=== PATIENT | male | born 1930 | race Caucasian/White ===

== ENCOUNTER 2017-07-17 08:58 | Inpatient (IN) | payer OTHER ==
[~2017-07-17] VITALS: Ht 185.4 cm; Wt 90.7 kg
--- NOTE | ~2017-07-17 | S ---
[facility] [place] [address] SURGICAL PATH RPT PROCEDURE Name: JULIANE HILTON Cj Room #: 435-P ADM IN M.R.#: [id number] Admission: 07/17/17 Date of : [birth year] Discharge: Report #: [id number] Path Case #: [id number] PATHOLOGY REPORT COLLECTION DATE: 07/20/2017 RECEIVED DATE: 07/20/2017 SUBMITTING PHYS: Dr. Kingsley Rojas OTHER PHYS: SPECIMEN(S) RECEIVED: A.Gastritis bx * * * * * * * * * * * * FINAL DIAGNOSIS: Stomach, biopsy: - Mild chronic inactive gastritis with reactive changes. - An H. Pylori immunostain is negative (Block A1; appropriately reactive control). PATHOLOGIST: Luis Richardson M.D. REPORT ELECTRONICALLY SIGNED BY: Luis Richardson M.D. DATE/TIME: 07/21/2017 11:26 * * * * * * * * * * * * GROSS PATHOLOGY: The specimen is received in formalin, labeled "Juliane Hilton and biopsy of gastritis", are three irregular fragment of eng soft tissue ranging from 0.1 up to 0.3 cm and measuring 0.4 x 0.3 x 0.2 cm in aggregate. Entirely submitted in A1. (SWS; 07/20/2017) CLINICAL HISTORY: SOA, Anemia, GI bleed Gastritis INITIAL CPT CODE(S): A; 16883, 43488 Professional services performed by [facility] at [facility] [address], [place] [address] Technical services performed by [facility] at [address] [place] [address], [place] [address], [place] [address]. [facility] [address] [place] [address] SURGICAL PATH RPT PROCEDURE Name: JULIANE HILTON Room #: 435-P ADM IN M.R.#: [id number] Admission: 07/17/17 Date of : [birth year] Discharge: Report #: [id number] Path Case #: [id number] [place] [id number] [address] PHONE: [phone] DIRECTOR: Jaiden Richards M.D. * * * END OF REPORT * * *
--- NOTE | ~2017-07-17 | EKG ---
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
--- NOTE | ~2017-07-17 | 2DMMODE ---
[facility] [address] [place] [address] 2 D/M-MODE ECHOCARDIOGRAM Name: JULIANE HILTON Room #: 435-P [facility] IN [facility]#: [id number] Admission: 07/17/17 Attend Phys: Emmanuel Young, Discharge: Date of : [birth year] Date of Service: 07/17/17 1546 Report #: [id number] THIS REPORT FOR: //name// APPROVED REPORT Study performed: 07/17/2017 14:21:16 EXAM: Comprehensive 2D, Doppler, and color-flow Echocardiogram Patient Location: Bedside Room #: [facility] Status: routine BSA: 2.15 HR: 76 bpm BP: 138/54 mmHg Rhythm: PAF Other Information Study Quality: Adequate/Low parasternal window. Technically limited study due to body habitus. Indications Paroxysmal A-fib. 2D Dimensions RVDd: 40.42 mm LVEF(%): 47.71 (>50%) IVSd: 11.29 (7-11mm) LVDd: 47.91 mm PWd: 10.92 (7-11mm) LVDs: 36.42 (25-40mm) Aortic Root: 36.36 mm Lopez's LVEF: 47.71 % Volumes Left Atrial Volume (Systole) Single Plane 4CH: 76.00 mL Single Plane 2CH: 86.63 mL LA ESV Index: 40.00 mL/m2 Aortic Valve AoV Peak Robin.: 1.47 m/s AO Peak Gr.: 8.70 mmHg LVOT Max P.94 mmHg LVOT Max V: 0.99 m/s Mitral Valve E/A Ratio: 0.7 [facility] [address] [place] [address] 2 D/M-MODE ECHOCARDIOGRAM Name: JULIANE HILTON Room #: 435-P [facility] IN [facility]#: [id number] Admission: 07/17/17 Attend Phys: Emmanuel Young, Discharge: Date of : [birth year] Date of Service: 07/17/17 1546 Report #: [id number] MV Decel. Time: 242.85 ms MV E Max Robin.: 0.51 m/s MV A Robin.: 0.69 m/s MV PHT: 70.43 ms IVRT: 87.66 ms Pulmonary Valve PV Peak Robin.: 1.20 m/s PV Peak Gr.: 5.73 mmHg Tricuspid Valve TR Peak Robin.: 2.35 m/s RAP Estimate: 5.00 mmHg TR Peak Gr.: 22.13 mmHg PA Pressure: 27.00 mmHg Left Ventricle The left ventricle is normal size. There is normal left ventricular wall thickness. Left ventricular systolic function is low-normal. LVEF is 50%. Mild diastolic dysfunction is present (impaired relaxation pattern). Right Ventricle The right ventricle is normal size. The right ventricular systolic function is normal. Atria Left atrium is mildly dilated. The right atrium size is normal. Aortic Valve The aortic valve is normal in structure. Mild aortic regurgitation. There is no aortic valvular stenosis. Mitral Valve The mitral valve is normal in structure. Mild mitral annular calcification. Mild mitral regurgitation. Tricuspid Valve The tricuspid valve is normal in structure. Trace to mild tricuspid regurgitation. Estimated PAP is 27mmHg. Pulmonic Valve Pulmonic valve is not well visualized. Great Vessels The aortic root is normal in size. Aortic arch is not well visualized. IVC is normal in size and collapses >50% with [facility] [address] [place] [address] 2 D/M-MODE ECHOCARDIOGRAM Name: LIDAJULIANE Cj Room #: 435-P [facility] IN [facility].#: [id number] Admission: 07/17/17 Attend Phys: Emmanuel Young, Discharge: Date of : [birth year] Date of Service: 07/17/17 1546 Report #: [id number] inspiration. Pericardium There is no pericardial effusion. <Conclusion> The left ventricle is normal size. Left ventricular systolic function is low-normal. LVEF is 50%. Mild diastolic dysfunction is present (impaired relaxation pattern). The right ventricle is normal size. Left atrium is mildly dilated. Mild aortic regurgitation. The mitral valve is normal in structure. Mild mitral annular calcification. The mitral valve is normal in structure. Mild mitral annular calcification. Mild mitral regurgitation. Trace to mild tricuspid regurgitation. Estimated PAP is 27mmHg. There is no pericardial effusion. <ELECTRONICALLY SIGNED> By: Ramakrishna Redmond MD, FACC 07/17/17 1546 1546 1546 Ramakrishna Redmond MD, FACC /INF
--- NOTE | ~2017-07-17 | P ---
[facility] [place] [address] PROCEDURE REPORT Name: LIDAJULIANE Cj Room #: 435-P [facility] IN ..#: [id number] Admission: 07/17/17 Attend Phys: Emmanuel Young DO Discharge: Date of : [birth year] Report #: [id number] THIS REPORT FOR: //name// CC: Dr. Ruy Bolaños MD OUTPATIENT UPPER ENDOSCOPY REPORT BRIEF HISTORY: The patient is an 87-year-old male who presented with shortness of breath, was found to have a several gram drop in hemoglobin in recent months. He does have a history of colon cancer with segmental resection in 2008. Last colonoscopy was negative per his report about 3-4 years ago in [place]. Iron studies here in the hospital are normal. One stool Hemoccult is negative. He has not noted any bloody stools or black stools. PREOPERATIVE DIAGNOSIS: Acute anemia. POSTOPERATIVE DIAGNOSES: 1. Diffuse gastritis. 2. Small hiatus hernia. MEDICATIONS: Deep sedation with propofol per anesthesia. SPECIMEN: Biopsies of gastritis. ESTIMATED BLOOD LOSS: 3 mL. PROCEDURE: EGD with biopsy. FINDINGS: Prior to propofol sedation, procedure of upper endoscopy was discussed with the patient as well as potential risks and its complications. He indicates he understands and desires to proceed. DESCRIPTION OF PROCEDURE: With the patient in the left lateral decubitus position, the [employer] video endoscope was inserted in the cervical esophagus under direct vision without difficulty. Examination of this organ through its entire length revealed normal esophageal mucosa down to the squamocolumnar junction. Squamocolumnar junction was inspected. A small hiatus hernia was noted. No ulcers or bleeding lesions were seen. A source for gastrointestinal blood loss was not seen. The scope was advanced fully into the stomach, which was examined on end view as well as retroflexed views. Again, no bleeding lesions were seen. No ulcers were seen. Upon retroflexion, the hiatus hernia was seen. No other abnormalities were identified. However, in the antrum, there was a diffuse erythematous gastritis, no ulcers or erosions were seen. Biopsies obtained for H. pylori. Pylorus, duodenal bulb and postbulbar sweep were inspected down to [facility] [address] [place] [address] PROCEDURE REPORT Name: LIDAJULIANE P Room #: 435-P [facility] IN ..#: [id number] Admission: 07/17/17 Attend Phys: Emmanuel Young DO Discharge: Date of : [birth year] Report #: [id number] about the third and fourth portion of duodenum. The patient was found to have a yellowish lipoma in the third portion of duodenum. It is smooth and benign appearance. Typical appearance and biopsies were not obtained. Obvious bleeding lesions were not seen. At that point, the scope was slowly withdrawn and careful circumferential views confirmed the above findings. The patient tolerated the procedure well. DISPOSITION: The patient with findings as noted above. I do not see an obvious bleeding lesion or lesion to explain acute blood loss. It is noted his iron studies are normal and one stool Hemoccult is negative. Etiology of his anemia is not entirely clear. If there ____ concern or if there is further evidence to support gastrointestinal blood loss, a colonoscopy at a later date may be a consideration. We will discuss further with the patient. <ELECTRONICALLY SIGNED> By: Kingsley Rojas MD 07/20/17 1949 1409 1849 Kingsley Rojas MD /nt
--- NOTE | ~2017-07-17 | EKG ---
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 07/20/17 0800 3 3 Ant English MD, [facility] /EPI
[2017-07-17 09:16] VITALS: BP 133/73
[2017-07-17] MEDS ORDERED: VALSARTAN-HCTZ1 EAC3 PO (09:21)
[2017-07-17] MEDS ORDERED: ASPIR 8181 MG PO (09:22)
[2017-07-17] MEDS ORDERED: GLUCOPHAGE1000 MG PO (09:22)
[2017-07-17] MEDS ORDERED: ELIQUIS5 MG PO (09:22)
[2017-07-17] MEDS ORDERED: GLUCOTROL5 MG PO (09:22)
[2017-07-17] MEDS ORDERED: LIPITOR10 MG PO (09:22)
[2017-07-17] MEDS ORDERED: B-12 COMPL1000 MCG/1 INJECTION (09:23)
[2017-07-17 09:29] LABS: HEMATOCRIT 28.8 % (42.0-52.0); HEMOGLOBIN 9.5 gm/dL (14.0-18.0); MCH 29.5 pg (26.0-34.0); MCHC 33.1 g/dL (28.0-37.0); MCV 89.1 fL (80.0-100.0); PLATELET COUNT 398 thou/uL (150-400); RBC 3.23 mil/uL (4.50-6.00); RDW 13.8 % (10.5-14.5); WBC 9.5 thou/uL (4.0-11.0)
[2017-07-17 09:33] LABS: MANUAL DIFF YES
[2017-07-17 09:35] LABS: ANION GAP 12 mmol/L (7-16); BUN 44 mg/dL (7-18); CALCIUM 9.4 mg/dL (8.5-10.1); CHLORIDE 99 mmol/L (98-107); CO2 26 mmol/L (21-32); CREATININE 1.5 mg/dL (0.7-1.3); GLUCOSE 167 mg/dL (74-106); SODIUM 137 mmol/L (136-145)
[2017-07-17 09:43] LABS: TROPONIN-I < 0.04 ng/mL (<0.04-0.07)
[2017-07-17 10:10] LABS: ABSOLUTE NEUTROPHILS 8.2 thou/uL (1.4-8.2); PLATELET ESTIMATE NORMAL; TOTAL CELL COUNT 100
[2017-07-17 12:56] VITALS: BP 148/70
[2017-07-17 13:09] LABS: OBSERVED RETIC COUNT 1.98 % (0.6-2.6)
[2017-07-17 13:22] VITALS: BP 148/70
[2017-07-17 13:24] LABS: % SATURATION 30 % (20-39); IRON 100 ug/dL (65-175); TIBC 330 ug/dL (250-450); UIBC 230 ug/dL
[2017-07-17 14:05] VITALS: BP 128/54; BP 134/68
[2017-07-17 19:24] VITALS: BP 118/44
[2017-07-18 03:51] LABS: ABSOLUTE NEUTROPHILS 6.2 thou/uL (1.4-8.2); BASOPHILS 0.4 % (0.0-2.0); EOSINOPHILS 2.4 % (0.0-3.0); HEMATOCRIT 24.1 % (42.0-52.0); HEMOGLOBIN 8.2 gm/dL (14.0-18.0); MCH 30.1 pg (26.0-34.0); MCHC 33.9 g/dL (28.0-37.0); MCV 88.7 fL (80.0-100.0); MONOCYTES 8.1 % (1.0-8.0); PLATELET COUNT 340 thou/uL (150-400); POLYS 78.1 % (36.0-66.0); RBC 2.72 mil/uL (4.50-6.00); RDW 13.8 % (10.5-14.5)
[2017-07-18 03:55] LABS: MANUAL DIFF NO
[2017-07-18 04:06] LABS: ANION GAP 10 mmol/L (7-16); BUN 29 mg/dL (7-18); CALCIUM 8.5 mg/dL (8.5-10.1); CHLORIDE 99 mmol/L (98-107); CO2 28 mmol/L (21-32); CREATININE 1.1 mg/dL (0.7-1.3); GLUCOSE 128 mg/dL (74-106); POTASSIUM 3.8 mmol/L (3.5-5.1); SODIUM 137 mmol/L (136-145)
[2017-07-18 04:12] LABS: CHOLESTEROL 70 mg/dL (<200); HDL CHOLESTEROL 31 mg/dL (>40); LDL CHOLESTEROL 28 mg/dL (<100); TC:HDL 2.3 Ratio (Not establshd); TRIGLYCERIDE 55 mg/dL (<150); VLDL 11 mg/dL (<40)
[2017-07-18 04:21] LABS: SERUM ASSESSMENT Clear
[2017-07-18 04:52] VITALS: BP 116/49
[2017-07-18 08:00] VITALS: BP 107/48
[2017-07-18 16:00] VITALS: BP 121/47
[2017-07-18 19:16] VITALS: BP 115/42
[2017-07-19 03:40] VITALS: BP 113/51
[2017-07-19 04:56] LABS: ABSOLUTE NEUTROPHILS 5.7 thou/uL (1.4-8.2); BASOPHILS 0.3 % (0.0-2.0); HEMATOCRIT 26.4 % (42.0-52.0); HEMOGLOBIN 8.8 gm/dL (14.0-18.0); LYMPHOCYTES 11.7 % (24.0-44.0); MCH 29.5 pg (26.0-34.0); MCHC 33.3 g/dL (28.0-37.0); MCV 88.6 fL (80.0-100.0); MONOCYTES 9.5 % (1.0-8.0); PLATELET COUNT 334 thou/uL (150-400); POLYS 76.5 % (36.0-66.0); RBC 2.98 mil/uL (4.50-6.00); RDW 13.5 % (10.5-14.5); WBC 7.5 thou/uL (4.0-11.0)
[2017-07-19 05:00] LABS: MANUAL DIFF NO
[2017-07-19 05:08] LABS: CALCIUM 8.5 mg/dL (8.5-10.1); POTASSIUM 3.7 mmol/L (3.5-5.1)
[2017-07-19 08:00] VITALS: BP 108/42
[2017-07-19 16:00] VITALS: BP 113/51
[2017-07-19 19:53] VITALS: BP 111/52
[2017-07-20 03:06] VITALS: BP 96/59
[2017-07-20 05:26] LABS: ABSOLUTE NEUTROPHILS 5.7 thou/uL (1.4-8.2); BASOPHILS 0.4 % (0.0-2.0); HEMATOCRIT 26.4 % (42.0-52.0); HEMOGLOBIN 8.9 gm/dL (14.0-18.0); LYMPHOCYTES 10.9 % (24.0-44.0); MCH 29.4 pg (26.0-34.0); MCHC 33.5 g/dL (28.0-37.0); MCV 87.8 fL (80.0-100.0); PLATELET COUNT 313 thou/uL (150-400); POLYS 76.7 % (36.0-66.0); RBC 3.01 mil/uL (4.50-6.00); RDW 13.7 % (10.5-14.5); WBC 7.5 thou/uL (4.0-11.0)
[2017-07-20 05:28] LABS: MANUAL DIFF NO
[2017-07-20 05:38] LABS: CALCIUM 8.3 mg/dL (8.5-10.1); POTASSIUM 3.8 mmol/L (3.5-5.1)
[2017-07-20 08:00] VITALS: BP 127/57
[2017-07-20 16:00] VITALS: BP 138/62
[2017-07-20 19:35] VITALS: BP 113/42
[2017-07-21 05:50] VITALS: BP 113/49
[2017-07-21 06:38] LABS: HEMATOCRIT 23.2 % (42.0-52.0); HEMOGLOBIN 8.1 gm/dL (14.0-18.0); MCH 30.5 pg (26.0-34.0); MCHC 34.9 g/dL (28.0-37.0); MCV 87.4 fL (80.0-100.0); RBC 2.66 mil/uL (4.50-6.00); RDW 13.6 % (10.5-14.5); WBC 7.2 thou/uL (4.0-11.0)
[2017-07-21 07:36] VITALS: BP 110/43
== END 2017-07-21 13:52 | DRG 811 ==
LOC: ER 08:58 → 4S 12:53 → EROBS 12:53 → 4S 14:06
PROVIDERS: Family Medicine; Nurse Practitioner; Specialist
PROC: 0DB68ZX Excision of Stomach, Via Natural or Artificial Opening Endoscopic, Diagnostic (ICD-10-PCS; principal; 2017-07-20)
DX: D64.9 Anemia, unspecified (principal); N17.0 Acute kidney failure with tubular necrosis; I48.0 Paroxysmal atrial fibrillation; F03.90 Unspecified dementia, unspecified severity, without behavioral disturbance, psychotic disturbance, mood disturbance, and anxiety; E11.9 Type 2 diabetes mellitus without complications; K29.70 Gastritis, unspecified, without bleeding; K44.9 Diaphragmatic hernia without obstruction or gangrene; E78.5 Hyperlipidemia, unspecified; I10 Essential (primary) hypertension; E03.9 Hypothyroidism, unspecified; E78.00 Pure hypercholesterolemia, unspecified; Z85.46 Personal history of malignant neoplasm of prostate; Z85.038 Personal history of other malignant neoplasm of large intestine
CPT/HCPCS: 10100; 62110; 62900; 70005

== ENCOUNTER 2017-08-07 14:45 | Emergency (ER) | payer OTHER ==
[~2017-08-07] VITALS: Ht 185.4 cm; Wt 90.7 kg
[~2017-08-07 14:45] MED LIST: ASPIR 8181 MG PO; B-12 COMPL1000 MCG/1 INJECTION; ELIQUIS5 MG PO; GLUCOPHAGE1000 MG PO; GLUCOTROL5 MG PO; LIPITOR10 MG PO; VALSARTAN-HCTZ1 EAC3 PO
[2017-08-07 15:21] LABS: ABSOLUTE NEUTROPHILS 7.9 thou/uL (1.4-8.2); BASOPHILS 0.5 % (0.0-2.0); HEMATOCRIT 25.8 % (42.0-52.0); HEMOGLOBIN 8.5 gm/dL (14.0-18.0); LYMPHOCYTES 14.4 % (24.0-44.0); MCH 28.2 pg (26.0-34.0); MCHC 32.8 g/dL (28.0-37.0); MCV 86.2 fL (80.0-100.0); MONOCYTES 8.4 % (1.0-8.0); PLATELET COUNT 350 thou/uL (150-400); POLYS 75.7 % (36.0-66.0); WBC 10.5 thou/uL (4.0-11.0)
[2017-08-07 15:23] LABS: MANUAL DIFF NO
[2017-08-07 15:53] LABS: CREATININE 1.3 mg/dL (0.7-1.3); POTASSIUM 4.5 mmol/L (3.5-5.1)
[2017-08-07 15:58] LABS: ALBUMIN 2.1 g/dL (3.4-5.0); DIRECT BILIRUBIN 0.1 mg/dL (<0.1-0.3); TOTAL BILIRUBIN 0.4 mg/dL (<0.1-1.0); TOTAL PROTEIN 7.4 g/dL (6.4-8.2)
== END 2017-08-07 16:55 | disposition home or self-care (01) ==
LOC: ER 14:45
PROVIDERS: Nurse Practitioner
DX: R79.89 Other specified abnormal findings of blood chemistry (principal); I10 Essential (primary) hypertension; E78.00 Pure hypercholesterolemia, unspecified

== ENCOUNTER 2017-10-08 11:17 | Inpatient (IN) | payer OTHER ==
[~2017-10-08] VITALS: Ht 188 cm; Wt 92.8 kg
[2017-10-08] VITALS (7 sets, daily range): BP systolic 100–149; BP diastolic 47–79
--- NOTE | ~2017-10-08 | HC ---
[facility] [place] [address] CONSULTATION Name: JULIANE HILTON Cj Room #: 213-P [facility] IN ..#: [id number] Admission: 10/08/17 Attend Phys: Emmanuel Young DO Discharge: Date of : [birth year] Report #: [id number] THIS REPORT FOR: //name// CC: Emmanuel Bolaños MD DATE OF SERVICE: 10/08/2017 TYPE OF REPORT: Gastroenterology consultation. PATIENT OF: Caden Bolaños M.D. and Emmanuel Young D.O. CHIEF COMPLAINT AND HISTORY OF PRESENT ILLNESS: This is a very pleasant 87-year-old white male whom I asked to evaluate for possible etiologies of microcytic anemia. The patient states that recently he lost 35 pounds unintentionally at the care home. He states he just lost his appetite and he could not eat anything. He had injured his back recently and that may have been a contributing factor. He presented to the hospital with dizziness and mild shortness of air that started this morning. PAST MEDICAL HISTORY: Significant for hypertension, hyperlipidemia, diabetes mellitus, atrial fibrillation, prostate cancer and colon cancer. PAST SURGICAL HISTORY: Significant for prostatectomy in 1996. He had a right colon resection in 2008 for the colon cancer and he has had bilateral cataract surgeries. ALLERGIES: No known drug allergies. MEDICATIONS: Prior to admission included aspirin, Lipitor, vitamin B12, Glucotrol, hydrochlorothiazide, metformin and metoprolol. SOCIAL HISTORY: Does not smoke and does not drink alcohol. He has had blood transfusions in the past. FAMILY HISTORY: Not taken. REVIEW OF SYSTEMS: He denies any dysphagia, odynophagia, gastroesophageal reflux, hiatal hernia, peptic ulcer disease, nausea or vomiting. His weight has gone down 35 pounds unintentionally as described above. His appetite was poor but is now back to normal. He denies any hematemesis, hematochezia or melena. He denies any nausea or vomiting, diarrhea, constipation or abdominal pain. He denies jaundice, hepatitis, cholelithiasis, cholecystitis or pancreatitis. [facility] [address] [place] [address] CONSULTATION Name: JULIANE HILTON Cj Room #: 213-P [facility] IN [facility].#: [id number] Admission: 10/08/17 Attend Phys: Emmanuel Young DO Discharge: Date of : [birth year] Report #: [id number] PHYSICAL EXAMINATION: GENERAL: Reveals a well-developed, well-nourished 87-year-old white male, in no apparent distress. At the time of the examination, he is awake, alert and oriented x 4 and cooperative and pleasant to converse with. VITAL SIGNS: Blood pressure 134/61, temperature 98, pulse 66 and respirations are 16 and oxygen saturation on room air is 100%. HEENT: Normocephalic, atraumatic and anicteric. HEART: Irregularly irregular with a controlled ventricular rate. LUNGS: Clear bilaterally in all serrano. ABDOMEN: Soft. Bowel sounds are present in all 4 quadrants. There is no palpable organomegaly or mass. There is no tenderness, rebound or guarding. NEUROLOGICAL: He appears grossly intact without any lateralizing signs. SIGNIFICANT LABORATORY DATA: Glucose is 216 today. Troponins normal. BNP is 1076. White blood cell count 5.6; hemoglobin 8.5; hematocrit 26.4; MCV 79; MCH 25; MCHC 32; RDW 17.7 and platelet count is 313,000. TSH is normal. IMPRESSION: 1. Microcytic anemia, hemoglobin 8. The patient has an esophagogastroduodenoscopy in June 2017 that was unrevealing as to the etiology of his anemia and colonoscopy was recommended at that time. 2. Weight loss 35 pounds unintentionally at the care home. The patient states his appetite has returned to normal now and he is eating regularly. 3. History of colon cancer in 2008, status post right hemicolectomy. 4. History of prostate cancer in 1996. He had a prostatectomy at that time. 5. Hypertension. 6. Hyperlipidemia. 7. Atrial fibrillation. 8. Diabetes mellitus. RECOMMENDATIONS: My recommendations are as follows: We will prep him tonight for possible colonoscopy in the morning. He will be n.p.o. after midnight. If the colonoscopy is negative for source of bleeding, he may benefit from an M2 video capsule study of the small intestine. He said that he has had these performed before but has never gotten results from them. These were both done in [place]. Thank you very much once again for allowing me to participate in his care, Dr. Bolaños and Dr. Young. <ELECTRONICALLY SIGNED> By: Margaret Austin DO 10/08/172138 1547 28 Margaret Austin DO /nt
--- NOTE | ~2017-10-08 | EKG ---
[place] [address] [address] 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 : 1930 Requested By: Nicki Bermudez Order Number: [id number] MD: Ant English Measurements Intervals [place] Rate: 79 P: SD: QRS: -54 QRSD: 130 T: 31 QT: 412 QTc: 473 Interpretive Statements Sinus rhythm with atrial premature complexes Left bundle branch block Compared to ECG 07/18/2017 09:58:44 No significant change was found Electronically Signed On 10-08-2017 12:49:46 [employer] by Ant English [email or web address] <ELECTRONICALLY SIGNED> By: Ant English MD, [facility] 10/08/17 1249 1138 113 Ant English MD, [facility] /EPI
--- NOTE | ~2017-10-08 | P ---
[facility] [place] [address] PROCEDURE REPORT Name: LIDAJULIANE Cj Room #: 213-P [facility]..#: [id number] Admission: 10/08/17 Attend Phys: Emmanuel Young DO Discharge: 10/13/17 Date of : [birth year] Report #: [id number] THIS REPORT FOR: //name// CC: Emmanuel Bolaños MD INPATIENT COLONOSCOPY BRIEF HISTORY: The patient is an 87-year-old male with microcytic anemia. He does have a history of colon cancer and also history of prostate cancer and he describes brachytherapy for his prostate cancer. PREOPERATIVE DIAGNOSES: History of colon cancer and microcytic anemia. POSTOPERATIVE DIAGNOSES: 1. Diminutive polyp, 30 cm. 2. Small internal hemorrhoids. 3. History of colon cancer, status post right hemicolectomy. 4. Diffusely dilated colon consistent with chronic constipation. MEDICATIONS: Deep sedation with propofol per anesthesia. SPECIMEN: Polyp from 30 cm. ESTIMATED BLOOD LOSS: 3 mL. PROCEDURE: Colonoscopy to ileocolonic anastomosis with biopsy findings. FINDINGS: Prior to propofol sedation, procedure of colonoscopy discussed with the patient as well as potential risks and its complications. He indicates he understands and desires to proceed. DESCRIPTION OF PROCEDURE: With the patient in left lateral decubitus position, digital examination was completed which revealed no abnormalities. Subsequently, the [employer] video colonoscope was introduced into the rectum, advanced under direct vision to the proximal colon. The ileocolonic anastomosis was identified. It was unremarkable without evidence of ulceration. I was able to visualize the distal segment of the terminal ileum, which is noted to be unremarkable. At that point, the scope was slowly withdrawn and careful circumferential views obtained. There were limitations of the prep. However, with extensive irrigation and suctioning of about 1300 mL of liquid stool, we were able to upgrade to a good prep. The mucosa was within normal limits, normal vascular pattern and normal light reflex. As we withdrew the scope, the mucosa was inspected. It was normal. He did have a dilated colon consistent with suggestive of chronic constipation. No obstructing lesions were seen. No neoplastic lesions were seen until the sigmoid colon was reached in about 30 cm. [facility] [address] [place] [address] PROCEDURE REPORT Name: LIDAJULIANE P Room #: 213-P [facility] IN ..#: [id number] Admission: 10/08/17 Attend Phys: Emmanuel Young DO Discharge: 10/13/17 Date of : [birth year] Report #: [id number] A diminutive polyp was seen and removed by biopsy. Scope was further withdrawn and no additional polypoid lesions were seen. The scope was withdrawn in the rectum and no mucosal abnormalities were seen. Upon retroflexion, small hemorrhoids were seen. In addition, the patient reports brachytherapy, but vascular ectasias or bleeding lesions. Her radiation proctitis was not identified on this exam. Scope was withdrawn. The patient tolerated the procedure well. DISPOSITION: The patient with microcytic anemia, history of colon cancer. He did have one diminutive polyp. The polyp is quite small and I doubt it is significant for blood loss. No bleeding lesions were seen. It is noted that in the past several months, he has had several Hemoccult negative stools. Anemia may be on the basis of chronic illness. However, if there is evidence of gastrointestinal blood loss, a capsule study would be consideration. We will follow up on the path, but at this point in time, I doubt the patient would benefit from routine high risk screening colonoscopy due to his history of colon cancer. Last colonoscopy was 2-3 years ago. Withdrawal time from the surgical anastomosis was 18 minutes 44 seconds. <ELECTRONICALLY SIGNED> By: Kingsley Rojas MD 10/13/171926 1248 06 Kingsley Rojas MD /nt
--- NOTE | ~2017-10-08 | HC ---
[facility] [place] [address] CONSULTATION Name: JULIANE HILTON Room #: 213-P ADM IN .R.#: [id number] Admission: 10/08/17 Attend Phys: Emmanuel Young DO Discharge: Date of : [birth year] Report #: [id number] THIS REPORT FOR: //name// CC: Margaret Leal MD PHYSICIAN REQUESTING CONSULT: Emmanuel Young DO REASON FOR CONSULTATION: Anemia. HISTORY OF PRESENT ILLNESS: The patient is a very pleasant 87-year-old gentleman who currently lives in [facility] who I believe is originally may be recently from [place] up until about a year and a half ago. The patient was admitted for worsening anemia. It sounds like the anemia was sort of noted this past June or so. The Eliquis was held. He also had a back fracture about that time and had weight loss. Hemoglobin about that time in [place] records had been about 9.8, MCV of about 89, it has drifted down to 78, and hemoglobin 8 lately. Iron studies back then were borderline, but the patient's MCV has decreased quite a bit since that time. His differential white cells and platelets appear to be normal. The patient states he denies any headache, any mouth troubles, does have some vision troubles, but it is old, no swallowing troubles, no new dyspepsia, no new abdominal pain, no new constipation, no new diarrhea, no melanoma, no hematochezia. He states he eats a regular meat and potatoes diet. He had had some anorexia, shortly after the back fall, but this has been improving and he has started to gain weight again. He has not noticed any change in bowel habits. He had been on iron for several days, recently they stopped it, I assume in preparation for evaluation. His several years ago and he does have a brother and niece in town. PAST MEDICAL HISTORY: Notable for hypertension, hyperlipidemia, diabetes, atrial fibrillation may be from a year and a half ago, had been on anticoagulation until this fall with Eliquis; history of prostate cancer in 1996, treated, I believe in [place]; history of colon cancer, supposedly had surgery at the [facility] in [place], [place]; did not take chemotherapy, he does not think his lymph nodes were involved, but does not recall. ALLERGIES: Not known. 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 In the past, had also worked at [employer]. Nonsmoker and nondrinker at this time. His several years ago from complications of symptoms of a polyp or head and neck cancer, I am not sure exactly what type. She survived for several years. No children. FAMILY HISTORY: Mother had some type of cancer, went to her brain, not sure it [facility] [address] [address] CONSULTATION Name: JULIANE HILTON Cj Room #: 213-P [facility] IN M.R.#: [id number] Admission: 10/08/17 Attend Phys: Emmanuel Young DO Discharge: Date of : [birth year] Report #: [id number] was primary or not. He had 5 brothers and 1 sister, sounds like some of his brothers might have had colon cancer. MEDICATIONS: At this time, in the hospital include glipizide 5 mg daily, also insulin on a sliding scale, atorvastatin 10 mg daily, metformin 1000 b.i.d., and also MiraLax p.r.n. LABORATORY DATA: Studies here include a TSH of 2.43, hemoglobin of 8 with an MCV of 78.6, RDW 18 with normal differential. Chemistries had been normal earlier in August with ASTs, total bili, alk phos, and ASTs normal. PHYSICAL EXAMINATION: GENERAL: The patient appears his stated age, a little hard of hearing. VITAL SIGNS: Height is 6 feet 1 inch or 187.9 cm. Weight is 204 pounds or 92.8 kilograms. Blood pressure is 122/60, O2 sat 91%, respirations 16, pulse 66, afebrile with a temperature of 98.1. MOOD: He is alert, pleasant, and conversant. NEUROLOGIC: Little hard of hearing, moving all extremities, thought pattern appears to be normal. HEENT: Face is symmetrical. Oropharynx is clear. No enlarged lymph nodes in the supraclavicular, cervical, axillary, or inguinal region. ABDOMEN: Slightly obese. No masses. No tenderness. EXTREMITIES: Without clubbing, cyanosis or edema. SKIN: Appears warm and dry. Note that BUN and creatinine are normal. ASSESSMENT AND PLAN: 1. Worsening microcytic anemia, most likely iron deficiency related to gastrointestinal blood loss that had been exacerbated by Eliquis. Agree with plans for colonoscopy. It sounds like the patient had had a recent upper endoscopy back in June [address] Kingsley Rojas, which showed diffuse gastritis and a small hiatal hernia. 2. Most likely iron deficiency. I think the risk for future transfusion is higher than the risk from iron infusions. We will make plans for iron infusion, discussed with the patient, he gave consent. I have talked with pharmacist. 3. Hypertension. Defer use of metoprolol, hydrochlorothiazide, and others. 4. Diabetes, oral agents per others including Glucotrol and metformin. 5. Lipidemia. Continue his Lipitor as needed. 6. Atrial fibrillation, currently off Eliquis. We will defer to others. We will hold off given worsening probable iron deficiency. 7. History of colon cancer 8 years ago at [place], doubt recurrent, chemistries normal. 8. History of prostate cancer, treated with radioactive seeds, not known to be recurrent, reports PSA had been unremarkable. 9. Weight loss, may have been related to back issues and reported increased [facility] [address] [place] [address] CONSULTATION Name: LIDAJULIANE Cj Room #: 213-P [facility] IN M.R.#: [id number] Admission: 10/08/17 Attend Phys: Emmanuel Young DO Discharge: Date of : [birth year] Report #: [id number] improvement in appetite and weight, do not think that additional scans at this time are warranted. If others feel differently, I would not disagree. We will follow with you. <ELECTRONICALLY SIGNED> By: Connor Briscoe MD 10/11/17 1411 [id number] Connor Briscoe MD /nt
--- NOTE | ~2017-10-08 | S ---
[facility] [place] [address] SURGICAL PATH RPT PROCEDURE Name: JULIANE HILTON Room #: 213-P [facility] IN M.R.#: [id number] Admission: 10/08/17 Date of : [birth year] Discharge: 10/13/17 Report #: [id number] Path Case #: [id number] PATHOLOGY REPORT COLLECTION DATE: 10/12/2017 RECEIVED DATE: 10/12/2017 SUBMITTING PHYS: Dr. Kingsley Rojas OTHER PHYS: Dr. Emmanuel Bolaños SPECIMEN(S) RECEIVED: A.Polyp at 30cm * * * * * * * * * * * * FINAL DIAGNOSIS: Colonic mucosa "polyp at 30 cm": - Fragments of tubular adenomas. - There is no evidence of high grade dysplasia or malignancy. (SHA:mm; 10/13/2017) PATHOLOGIST: Matthew Duenas M.D. REPORT ELECTRONICALLY SIGNED BY: Matthew Duenas M.D. DATE/TIME: 10/13/2017 13:35 * * * * * * * * * * * * GROSS PATHOLOGY: Received in formalin labeled "Juliane Hilton, polyp at 30 cm," are 2 segments of eng soft tissue measuring 0.7 x 0.3 x 0.2 cm in aggregate dimensions and ranging from 0.3 to 0.4 cm in maximum dimension. The specimen is submitted entirely in cassette A1. (TSD; 10/12/2017) CLINICAL HISTORY: Pre-OP DX: Anemia Post-OP DX: Colon polyp INITIAL CPT CODE(S): A; 68655 Professional services performed by [facility] at [facility] [address], [place] [address] Technical services performed by [facility] at [address] [place] [id number]. [facility] [address] [place] [address] SURGICAL PATH RPT PROCEDURE Name: JULIANE HILTON Room #: 213-P [facility] IN Cesar.Samantha#: [id number] Admission: 10/08/17 Date of : [birth year] Discharge: 10/13/17 Report #: [id number] Path Case #: [id number] [facility] [address] [address] PHONE: [phone] DIRECTOR: Jaiden Richards M.D. * * * END OF REPORT * * *
[2017-10-08 12:01] LABS: ABSOLUTE NEUTROPHILS 4.2 thou/uL (1.4-8.2); BASOPHILS 0.3 % (0.0-2.0); EOSINOPHILS 0.6 % (0.0-3.0); HEMATOCRIT 26.4 % (42.0-52.0); HEMOGLOBIN 8.5 gm/dL (14.0-18.0); LYMPHOCYTES 16.3 % (24.0-44.0); MCH 25.4 pg (26.0-34.0); MCHC 32.1 g/dL (28.0-37.0); MCV 79.1 fL (80.0-100.0); MONOCYTES 8.3 % (1.0-8.0); PLATELET COUNT 313 thou/uL (150-400); POLYS 74.5 % (36.0-66.0); RBC 3.33 mil/uL (4.50-6.00); RDW 17.7 % (10.5-14.5); WBC 5.6 thou/uL (4.0-11.0)
[2017-10-08 12:02] LABS: MANUAL DIFF NO
[2017-10-08 12:08] LABS: ANION GAP 6 mmol/L (7-16); BUN 28 mg/dL (7-18); CALCIUM 8.9 mg/dL (8.5-10.1); CHLORIDE 103 mmol/L (98-107); CO2 30 mmol/L (21-32); GLUCOSE 216 mg/dL (74-106); POTASSIUM 3.9 mmol/L (3.5-5.1); SODIUM 139 mmol/L (136-145)
[2017-10-08 12:16] LABS: TROPONIN-I < 0.04 ng/mL (<0.06)
[2017-10-08] MEDS ORDERED: LOPRESSOR25 PO (13:05)
[2017-10-08] MEDS ORDERED: HYDROCHLOROTH12.5 M1 PO (13:05)
[2017-10-09] VITALS (7 sets, daily range): BP systolic 121–132; BP diastolic 57–69
[2017-10-09 03:53] LABS: ABSOLUTE NEUTROPHILS 3.5 thou/uL (1.4-8.2); BASOPHILS 0.7 % (0.0-2.0); EOSINOPHILS 1.6 % (0.0-3.0); HEMATOCRIT 24.4 % (42.0-52.0); LYMPHOCYTES 23.1 % (24.0-44.0); MCH 25.7 pg (26.0-34.0); MCHC 32.7 g/dL (28.0-37.0); MCV 78.6 fL (80.0-100.0); MONOCYTES 9.3 % (1.0-8.0); PLATELET COUNT 280 thou/uL (150-400); POLYS 65.3 % (36.0-66.0); RBC 3.11 mil/uL (4.50-6.00); WBC 5.3 thou/uL (4.0-11.0)
[2017-10-09 04:08] LABS: MANUAL DIFF NO
[2017-10-09 04:15] LABS: CALCIUM 8.6 mg/dL (8.5-10.1); CREATININE 0.9 mg/dL (0.7-1.3); POTASSIUM 4.3 mmol/L (3.5-5.1)
[2017-10-09 08:03] LABS: % SATURATION 12 % (20-39); IRON 23 ug/dL (65-175); TIBC 194 ug/dL (250-450); UIBC 171 ug/dL
[2017-10-10 03:37] VITALS: BP 126/63
[2017-10-10 04:12] LABS: ABSOLUTE NEUTROPHILS 3.7 thou/uL (1.4-8.2); BASOPHILS 0.6 % (0.0-2.0); EOSINOPHILS 1.6 % (0.0-3.0); HEMATOCRIT 26.4 % (42.0-52.0); HEMOGLOBIN 8.4 gm/dL (14.0-18.0); LYMPHOCYTES 21.6 % (24.0-44.0); MCH 25.1 pg (26.0-34.0); MCHC 31.9 g/dL (28.0-37.0); MCV 78.7 fL (80.0-100.0); MONOCYTES 9.8 % (1.0-8.0); PLATELET COUNT 293 thou/uL (150-400); POLYS 66.4 % (36.0-66.0); RBC 3.35 mil/uL (4.50-6.00); RDW 17.6 % (10.5-14.5); WBC 5.5 thou/uL (4.0-11.0)
[2017-10-10 04:17] LABS: MANUAL DIFF NO
[2017-10-10 04:30] LABS: CALCIUM 8.7 mg/dL (8.5-10.1); CREATININE 0.8 mg/dL (0.7-1.3)
[2017-10-10 07:14] VITALS: BP 125/67
[2017-10-10 11:18] VITALS: BP 122/62
[2017-10-10 15:35] VITALS: BP 113/69
[2017-10-10 19:41] VITALS: BP 114/58
[2017-10-11 04:02] VITALS: BP 120/59
[2017-10-11 08:00] VITALS: BP 129/66
[2017-10-11 12:25] VITALS: BP 106/63
[2017-10-11 14:30] VITALS: BP 122/57
[2017-10-11 16:00] VITALS: BP 125/56
[2017-10-11 20:29] VITALS: BP 142/76
[2017-10-12 03:33] VITALS: BP 114/57
[2017-10-12 03:42] LABS: ABSOLUTE NEUTROPHILS 3.6 thou/uL (1.4-8.2); BASOPHILS 0.5 % (0.0-2.0); EOSINOPHILS 1.3 % (0.0-3.0); HEMATOCRIT 26.7 % (42.0-52.0); HEMOGLOBIN 8.8 gm/dL (14.0-18.0); LYMPHOCYTES 24.2 % (24.0-44.0); MCHC 32.9 g/dL (28.0-37.0); MONOCYTES 10.9 % (1.0-8.0); PLATELET COUNT 321 thou/uL (150-400); POLYS 63.1 % (36.0-66.0); RBC 3.37 mil/uL (4.50-6.00); RDW 17.8 % (10.5-14.5); WBC 5.7 thou/uL (4.0-11.0)
[2017-10-12 03:46] LABS: MANUAL DIFF NO
[2017-10-12 03:51] LABS: CALCIUM 8.6 mg/dL (8.5-10.1); CREATININE 0.9 mg/dL (0.7-1.3); POTASSIUM 4.2 mmol/L (3.5-5.1)
[2017-10-12 07:38] VITALS: BP 114/60
[2017-10-12 11:32] VITALS: BP 141/65
[2017-10-12 15:26] VITALS: BP 127/64
[2017-10-12 19:27] VITALS: BP 134/61
[2017-10-13 04:03] VITALS: BP 121/58
[2017-10-13 08:05] VITALS: BP 143/79
[2017-10-13] MEDS ORDERED: ASPIRIN EC325 MG PO (10:23)
[2017-10-13 11:49] VITALS: BP 141/80
[2017-10-13 13:11] VITALS: BP 122/57
== END 2017-10-13 13:34 | disposition home health service (06) | DRG 811 ==
LOC: ER 11:17 → EROBS 12:41 → 2N 12:41 → ENTRNSPT 10-13 13:27 → EDTRNSPTSTS 10-13 13:30 → 2N 10-13 13:34
PROVIDERS: Emergency Medicine; Family Medicine; Internal Medicine Hematology & Oncology
PROC: 0DBN8ZZ Excision of Sigmoid Colon, Via Natural or Artificial Opening Endoscopic (ICD-10-PCS; principal; 2017-10-12)
DX: D50.9 Iron deficiency anemia, unspecified (principal); E43 Unspecified severe protein-calorie malnutrition; I10 Essential (primary) hypertension; E78.00 Pure hypercholesterolemia, unspecified; E11.9 Type 2 diabetes mellitus without complications; E03.9 Hypothyroidism, unspecified; I48.0 Paroxysmal atrial fibrillation; R63.4 Abnormal weight loss; K63.5 Polyp of colon; K59.09 Other constipation; K64.8 Other hemorrhoids; Z85.46 Personal history of malignant neoplasm of prostate; Z85.038 Personal history of other malignant neoplasm of large intestine; Z90.49 Acquired absence of other specified parts of digestive tract; Z98.42 Cataract extraction status, left eye; Z98.41 Cataract extraction status, right eye; Z80.0 Family history of malignant neoplasm of digestive organs; Z79.01 Long term (current) use of anticoagulants; Z79.899 Other long term (current) drug therapy; Z79.82 Long term (current) use of aspirin; Z68.26 Body mass index [BMI] 26.0-26.9, adult
CPT/HCPCS: 10081; 62110; 62900

== ENCOUNTER 2017-10-14 16:18 | Emergency (ER) | payer OTHER ==
[~2017-10-14] VITALS: Ht 185.4 cm; Wt 91.6 kg
--- NOTE | ~2017-10-14 | EKG ---
[place] [address] [facility] 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
[~2017-10-14 16:18] MED LIST changes: +ASPIRIN EC325 MG PO; +HYDROCHLOROTH12.5 M1 PO; +LOPRESSOR25 PO
[2017-10-14 17:31] LABS: HEMATOCRIT 27.5 % (42.0-52.0); HEMOGLOBIN 9.1 gm/dL (14.0-18.0); MCV 78.8 fL (80.0-100.0); RBC 3.49 mil/uL (4.50-6.00); RDW 18.2 % (10.5-14.5); WBC 6.3 thou/uL (4.0-11.0)
[2017-10-14 17:39] LABS: ANION GAP 9 mmol/L (7-16); BUN 13 mg/dL (7-18); CALCIUM 9.2 mg/dL (8.5-10.1); CHLORIDE 104 mmol/L (98-107); CO2 28 mmol/L (21-32); GLUCOSE 137 mg/dL (74-106); POTASSIUM 4.2 mmol/L (3.5-5.1); SODIUM 141 mmol/L (136-145)
[2017-10-14 17:48] LABS: TROPONIN-I < 0.04 ng/mL (<0.06)
== END 2017-10-14 18:03 | disposition home or self-care (01) ==
LOC: ER 16:18
PROVIDERS: Physician Assistant
DX: R00.2 Palpitations (principal); D64.9 Anemia, unspecified; R42 Dizziness and giddiness; I48.0 Paroxysmal atrial fibrillation; C61 Malignant neoplasm of prostate

== ENCOUNTER 2018-09-10 08:56 | Emergency (ER) | payer OTHER ==
[~2018-09-10] VITALS: Ht 185.4 cm; Wt 90.7 kg
[2018-09-10] MEDS ORDERED: TRAMADOL 50 MG50 MG PO (10:50)
[2018-09-10 11:30] VITALS: BP 129/64
== END 2018-09-10 11:30 | disposition home or self-care (01) ==
LOC: ER 08:56
DX: S20.221A Contusion of right back wall of thorax, initial encounter (principal); I10 Essential (primary) hypertension; E78.5 Hyperlipidemia, unspecified; I48.0 Paroxysmal atrial fibrillation; Z85.46 Personal history of malignant neoplasm of prostate; Z86.2 Personal history of diseases of the blood and blood-forming organs and certain disorders involving the immune mechanism; Z85.038 Personal history of other malignant neoplasm of large intestine; W18.39XA Other fall on same level, initial encounter; Y92.89 Other specified places as the place of occurrence of the external cause; Y93.89 Activity, other specified; Y99.8 Other external cause status

== ENCOUNTER 2018-10-05 09:06 | Emergency (ER) | payer OTHER ==
[~2018-10-05] VITALS: Ht 185.4 cm; Wt 90.7 kg
[~2018-10-05 09:06] MED LIST changes: +TRAMADOL 50 MG50 MG PO
[2018-10-05 09:51] LABS: HEMATOCRIT 29.7 % (42.0-52.0); HEMOGLOBIN 9.4 gm/dL (14.0-18.0); MCH 26.5 pg (26.0-34.0); MCHC 31.7 g/dL (28.0-37.0); MCV 83.6 fL (80.0-100.0); RBC 3.55 mil/uL (4.50-6.00); WBC 6.2 thou/uL (4.0-11.0)
[2018-10-05 09:58] LABS: CALCIUM 8.6 mg/dL (8.5-10.1); CREATININE 1.1 mg/dL (0.7-1.3); POTASSIUM 4.1 mmol/L (3.5-5.1)
[2018-10-05 11:22] LABS: URINE BILIRUBIN NEGATIVE (Negative); URINE BLOOD TRACE (Negative); URINE CLARITY CLOUDY; URINE COLOR YELLOW; URINE GLUCOSE-RANDOM* NEGATIVE (Negative); URINE KETONES NEGATIVE (Negative); URINE LEUKOCYTES-REFLEX 2+ (Negative); URINE NITRITE-REFLEX POSITIVE (Negative); URINE PROTEIN (DIPSTICK) NEGATIVE (Negative); URINE SPECIFIC GRAVITY 1.015 (1.005-1.035); URINE UROBILINOGEN 0.2 E.U./dl (0.2-1.0)
[2018-10-05 11:36] LABS: BACTERIA-REFLEX >30 Many /HPF (None Seen); CASTS None Seen /LPF (None Seen); CRYSTALS None Seen /LPF (None Seen); SQUAMOUS 0-3 Few /LPF (0-3)
[2018-10-05] MEDS ORDERED: KEFLEX500 M1 PO (11:36)
[2018-10-05 11:37] LABS: URINE RBC 0-2 Rare /HPF (0-2)
[2018-10-05 11:50] VITALS: BP 140/84
== END 2018-10-05 11:50 | disposition home or self-care (01) ==
LOC: ER 09:06
PROVIDERS: Physician Assistant
DX: N39.0 Urinary tract infection, site not specified (principal); I48.0 Paroxysmal atrial fibrillation; Z85.038 Personal history of other malignant neoplasm of large intestine; Z85.46 Personal history of malignant neoplasm of prostate; Z86.2 Personal history of diseases of the blood and blood-forming organs and certain disorders involving the immune mechanism

== ENCOUNTER 2018-11-30 11:10 | Emergency (ER) | payer OTHER ==
[~2018-11-30] VITALS: Ht 185.4 cm; Wt 90.7 kg
[~2018-11-30 11:10] MED LIST changes: +KEFLEX500 M1 PO
[2018-11-30] MEDS ORDERED: METOPROLOL SUCC50 MG PO (12:04)
[2018-11-30 12:11] LABS: ABSOLUTE NEUTROPHILS 4.5 thou/uL (1.4-8.2); BASOPHILS 0.5 % (0.0-2.0); EOSINOPHILS 0.1 % (0.0-3.0); HEMATOCRIT 26.9 % (42.0-52.0); HEMOGLOBIN 8.7 gm/dL (14.0-18.0); LYMPHOCYTES 5.7 % (24.0-44.0); MCH 25.5 pg (26.0-34.0); MCHC 32.3 g/dL (28.0-37.0); MCV 78.9 fL (80.0-100.0); MONOCYTES 5.8 % (1.0-8.0); PLATELET COUNT 330 thou/uL (150-400); POLYS 87.9 % (36.0-66.0); RBC 3.41 mil/uL (4.50-6.00); WBC 5.1 thou/uL (4.0-11.0)
[2018-11-30 12:14] LABS: URINE BILIRUBIN NEGATIVE (Negative); URINE BLOOD 2+ (Negative); URINE CLARITY CLEAR; URINE COLOR YELLOW; URINE GLUCOSE-RANDOM* NEGATIVE (Negative); URINE KETONES NEGATIVE (Negative); URINE NITRITE-REFLEX POSITIVE (Negative); URINE PROTEIN (DIPSTICK) 1+ (Negative); URINE SPECIFIC GRAVITY 1.025 (1.005-1.035); URINE UROBILINOGEN 0.2 E.U./dl (0.2-1.0)
[2018-11-30 12:15] LABS: URINE LEUKOCYTES-REFLEX 1+ (Negative)
[2018-11-30 12:20] LABS: CALCIUM 9.1 mg/dL (8.5-10.1); CREATININE 1.1 mg/dL (0.7-1.3); POTASSIUM 4.2 mmol/L (3.5-5.1)
[2018-11-30 12:22] LABS: SQUAMOUS 0-3 Few /LPF (0-3)
[2018-11-30 12:23] LABS: URINE RBC 0-2 Rare /HPF (0-2); URINE WBC-REFLEX 6-15 Few /HPF (0-5)
[2018-11-30 12:26] LABS: ALBUMIN 2.7 g/dL (3.4-5.0); TOTAL BILIRUBIN 0.5 mg/dL (<0.1-1.0); TOTAL PROTEIN 7.9 g/dL (6.4-8.2)
[2018-11-30 12:26] LABS: CASTS None Seen /LPF (None Seen); CRYSTALS None Seen /LPF (None Seen)
[2018-11-30] MEDS ORDERED: KEFLEX500 M1 PO (13:32)
[2018-11-30 14:52] VITALS: BP 112/56
== END 2018-11-30 14:55 ==
LOC: ER 11:10
PROVIDERS: Physician Assistant
DX: S01.81XA Laceration without foreign body of other part of head, initial encounter (principal); R53.1 Weakness; D64.9 Anemia, unspecified; N39.0 Urinary tract infection, site not specified; I48.0 Paroxysmal atrial fibrillation; Z85.038 Personal history of other malignant neoplasm of large intestine; Z85.46 Personal history of malignant neoplasm of prostate; W18.39XA Other fall on same level, initial encounter; Y93.89 Activity, other specified; Y92.89 Other specified places as the place of occurrence of the external cause; Y99.8 Other external cause status